=== PATIENT | female | born 1965 ===

== ENCOUNTER 2021-01-07 15:17 | Outpatient (CLI) | payer OTHER ==
--- NOTE | 2021-01-07 12:17 | XRAY Report ---
PROCEDURE: Foot 2 View BILAT INDICATIONS: BILATERAL FOOT PAIN TECHNIQUE: 2 views of both feet were obtained. COMPARISON: None FINDINGS: Bones: No fractures or dislocations. No suspicious bony lesions. No erosions or proliferative nino ges. Soft tissues: No tibiotalar joint effusion. Achilles tendon appears normal. IMPRESSION: Normal bilateral feet. No radiographic evidence of inflammatory arthropathy. Reviewed by: Kevin Tavares on 01/07/2021 12:16 PM PDT Approved by: Kevin Tavares on 01/07/2021 12:16 PM PDT Station ID: [id number]
== END 2021-01-07 15:18 ==
LOC: DI.N 15:17
PROVIDERS: ATTEND Family Medicine
DX: M79.671 Pain in right foot (principal); M79.672 Pain in left foot

== ENCOUNTER → 2021-01-07 | Outpatient (CLI) | payer OTHER ==
[2021-01-07 17:45] LABS: HCT - HEMATOCRIT 43.5 % (37.0-47.0); MEAN CORPUSCULAR HEMOGLOBIN 29.3 pg (27.0-31.0); MEAN CORPUSCULAR HGB CONC 32.2 g/dL (32.0-36.0); MEAN PLATELET VOLUME 10.4 fL (7.9-10.8); RED BLOOD COUNT 4.78 10^6/uL (4.20-5.40); RED CELL DISTRIBUTION WIDTH 12.7 % (12.0-15.0); WHITE BLOOD COUNT 6.7 x10^3/uL (4.8-10.8)
[2021-01-07 18:01] LABS: RHEUMATOID FACTOR NEGATIVE (Negative)
[2021-01-07 18:07] LABS: URIC ACID 7.1 mg/dL (2.6-7.2)
[2021-01-07 18:46] LABS: CRP - C-REACTIVE PROTEIN < 1.0 mg/dL (0-1.0)
[2021-01-11 08:17] LABS: ANA PATTERN Nuclear, Homogeneous; ANA SCREEN POSITIVE (NEGATIVE); ANA TITER 1:40 titer
[2021-01-11 13:16] LABS: DNA (DS) ANTIBODY <1 IU/mL
[2021-01-12 13:01] LABS: CYCLIC CITRULL PEPTIDE CCP IGG <16 UNITS
== END ==
LOC: LAB.N 08:00
PROVIDERS: ATTEND Family Medicine
DX: M79.673 Pain in unspecified foot (principal)
CPT/HCPCS: 36415; 84550; 85027; 85651; 86038; 86140; 86200; 86225; 86430

== ENCOUNTER 2021-01-10 13:57 | Outpatient (CLI) | payer OTHER | END 2021-01-10 13:58 | disposition home or self-care (01) | LOC: COV 13:57 | PROVIDERS: ATTEND Family Medicine | DX: R06.02 Shortness of breath (principal); M79.10 Myalgia, unspecified site; R53.83 Other fatigue; Z20.822 Contact with and (suspected) exposure to COVID-19 ==

== ENCOUNTER 2021-04-07 10:15 | Outpatient (CLI) | payer OTHER ==
[2021-04-07 10:29] LABS: BASOPHILS # (AUTO) 0.1 10^3/uL (0.0-0.1); BASOPHILS % (AUTO) 1.1 %; EOSINOPHILS # (AUTO) 0.2 10^3/uL (0.0-0.7); EOSINOPHILS % (AUTO) 2.7 %; HCT - HEMATOCRIT 44.8 % (37.0-47.0); HGB - HEMOGLOBIN 15.2 g/dL (12.0-16.0); LYMPHOCYTES % (AUTO) 39.5 %; MEAN CORPUSCULAR HEMOGLOBIN 29.5 pg (27.0-31.0); MEAN CORPUSCULAR HGB CONC 33.9 g/dL (32.0-36.0); MEAN CORPUSCULAR VOLUME 86.8 fL (81.0-99.0); MEAN PLATELET VOLUME 9.8 fL (7.9-10.8); MONOCYTES # (AUTO) 0.4 10^3/uL (0.0-1.0); MONOCYTES % (AUTO) 5.9 %; NEUTROPHILS # (AUTO) 3.8 10^3/uL (1.5-6.6); NEUTROPHILS % (AUTO) 50.5 %; PLT - PLATELET COUNT 332 10^3/uL (130-450); RED BLOOD COUNT 5.16 10^6/uL (4.20-5.40); RED CELL DISTRIBUTION WIDTH 12.2 % (12.0-15.0); WHITE BLOOD COUNT 7.5 x10^3/uL (4.8-10.8)
[2021-04-07 10:47] LABS: ALBUMIN 4.4 g/dL (3.2-5.5); ALBUMIN/GLOBULIN RATIO 1.3 (1.0-2.2); ALKALINE PHOSPHATASE 89 IU/L (42-121); ALT ALANINE AMINOTRANSFERASE 42 IU/L (10-60); AST ASPARTATE AMINOTRANSFERASE 28 IU/L (10-42); BILIRUBIN,TOTAL 0.7 mg/dL (0.2-1.0); BUN - BLOOD UREA NITROGEN 15 mg/dL (6-20); CALCIUM 9.4 mg/dL (8.5-10.3); CARBON DIOXIDE - CO2 27 mmol/L (21-32); CHLORIDE 101 mmol/L (101-111); CHOL/HDL RATIO 3.9 (<4.4); CHOLESTEROL 273 mg/dL; CREATININE 0.8 mg/dL (0.4-1.0); GFR - MDRD 74 (>89); GLUCOSE 109 mg/dL (70-100); HDL CHOLESTEROL 70 mg/dL; LDL CHOLESTEROL,CALCULATED 169 mg/dL; LDL/HDL RATIO 2.4 (<4.4); SODIUM 136 mmol/L (135-145); TOTAL PROTEIN 7.7 g/dL (6.7-8.2); TRIGLYCERIDES 171 mg/dL; VLDL CHOLESTEROL 34 mg/dL
== END 2021-04-07 10:16 | disposition home or self-care (01) ==
LOC: LAB 10:15
PROVIDERS: ATTEND Internal Medicine
DX: Z79.899 Other long term (current) drug therapy (principal)
CPT/HCPCS: 36415; 80053; 80061; 83721; 85025

== ENCOUNTER 2021-06-10 15:48 | Outpatient (CLI) | payer OTHER ==
--- NOTE | 2021-06-10 17:24 | XRAY Report ---
PROCEDURE: Thoracic Spine 2 View INDICATIONS: BACK PAIN, THORACIC REGION TECHNIQUE: 3 views of the thoracic spine were acquired. COMPARISON: None. FINDINGS: Bones: No fractures or dislocations. No suspicious bony lesions. 12 pairs of ribs are noted, and a ppear intact where visualized. Soft tissues: No paravertebral stripe thickening. IMPRESSION: No acute abnormalities. If clinical symptoms persist, advanced imaging such as CT or MRI may be helpf ul for further evaluation. Reviewed by: Jane Brown MD on 06/10/2021 5:22 PM PST Approved by: Jane Brown MD on 06/10/2021 5:22 PM PST Station ID: [id number]
== END 2021-06-10 15:49 | disposition home or self-care (01) ==
LOC: DI 15:48
PROVIDERS: ATTEND Registered Nurse
DX: M54.6 Pain in thoracic spine (principal)

== ENCOUNTER 2021-07-04 10:52 | Outpatient (CLI) | payer OTHER ==
--- NOTE | 2021-07-04 11:40 | CT Report ---
PROCEDURE: Low Dose Lung Cancer Screen INDICATIONS: HIST OF SMOKING TECHNIQUE: Noncontrast low-dose images were acquired from the pulmonary apices to the posterior costophrenic ang les. Multiplanar MIP reformats were then acquired. For radiation dose reduction, the following was used: automated exposure control, adjustment of mA and/or kV according to patient size. COMPARISON: None. FINDINGS: Image quality: Excellent. Lungs and pleura: [id number]-cx-[id number] paraseptal and centrilobular apical predominant emphysematous nino ge. There is a 5-6 mm solid pulmonary nodule in the right lower lobe posterolaterally (series 4 image 213). This is not significantly changed in size from 05/27/2020 study. No other suspicious pulmonary nodule or mass identified. Subsegmental atelectasis in the inferior right middle lobe anteriorly. No significant or suspicious pleural finding. Mediastinum: Heart size is normal. No pericardial effusion. No mediastinal adenopathy by size crit eria. Thoracic aorta and central pulmonary arteries are normal in size. Esophagus is normal in clarence papito. No hiatal hernia. Bones and chest wall: No suspicious bony lesions. No vertebral body compression fractures. No axil keon or supraclavicular adenopathy by size criteria. The thyroid is normal in size and there are no incidental findings. Abdomen: Visualized upper abdomen solid organs and bowel loops appear normal in the absence of contr ast. IMPRESSION: Unchanged approximately 5 mm right lower lobe pulmonary nodule. No enlarging or suspicious pulmonary nodule/mass. Djri-[id number]-[id number] apical predominant centrilobular and paraseptal emphysematous changes. Lung-RADS category 2, benign. Recommendation: Continued annual screening CT of the chest. Reviewed by: Brad King MD on 07/04/2021 11:39 AM PDT Approved by: Brad King MD on 07/04/2021 11:39 AM PDT Station ID: [id number]
== END 2021-07-04 10:53 | disposition home or self-care (01) ==
LOC: DI 10:52
PROVIDERS: ATTEND Registered Nurse
DX: Z12.2 Encounter for screening for malignant neoplasm of respiratory organs (principal); Z87.891 Personal history of nicotine dependence; R91.1 Solitary pulmonary nodule; J43.2 Centrilobular emphysema